=== PATIENT | female | born 1985 | race Caucasian/White ===

== ENCOUNTER 2020-12-08 21:19 | Observation (INO) | payer OTHER ==
--- OUTSIDE RECORDS SUMMARY | 2020-12-08 21:22 | XMS REPORT | Continuity of Care Document ---
:1985 Author Organization [facility] t Address [address] [place] [address] Care Team Providers Name Role Phone Carmelita WAGNER, Whit Attending Clinician Brayan WAGNER Attending Clinician Юлия WAGNER Attending Clinician Chacho Fong MD Attending Clinician Doctor Unassigned, Name Attending Clinician Unavailable Mayank AG Attending Clinician Юлия WAGNER Admitting Clinician Payers Payer Name Policy Type Policy Number Effective Date Expiration Date S ource Problems Condition Condition Condition Status Onset Resolution Last Treating Co mments Source Name Details Category Date Date Treatment Clinician Date lobsterman Diagnosis Active 2020-11-13 Memoria (current) 04:10:35 l use of Long Frank insulin term (current) use of insulin Active Diagnosis 11/13/2020 2.16.840.1 .656700.4. [id number] 607 Body mass Problem Active 2020-11-13 Me moria index 04:10:35 l (BMI) Body Frank 34.0-34.9, mass index adult (BMI) 34.0-34.9, adult Active Problem 11/13/2020 2.16.840.1 .024828.4. 391.11.308 607 BMI Problem Active 2020-11-13 Memor ia 32.0-32.9, 04:10:35 l adult BMI Frank 32.0-32.9, adult Active Problem 11/13/2020 2.16.840.1 .449935.4. 391.11.308 607 Insulin Problem Active 2020-11-13 Magdy amy pump in 04:10:[address] Insulin Frank pump in place Active Problem 11/13/2020 2.16.840.1 .120957.4. 391.11.308 607 Body mass Problem Active 2020-11-13 Me moria index 04:10:35 l (BMI) of Body Frank 33.0-33.9 mass index in adult (BMI) of 33.0-33.9 in adult Active Problem 11/13/2020 2.16.840.1 .388529.4. 391.11.308 607 Chronic Diagnosis Active 2020-11-13 Nc moria fatigue 04:10:35 l Chronic [place] fatigue Active Diagnosis 11/13/2020 2.16.840.1 .955313.4. 391.11.308 607 Acute Problem Active 2020-11-13 Memor ia vaginitis 04:10:35 l Acute Frank vaginitis Active Problem 11/13/2020 2.16.840.1 .355788.4. 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 391.11.308 607 Type 2 Problem Active 2020-11-13 Memor ia diabetes 04:10:35 l mellitus Type 2 Rafael n with diabetes hyperglyce mellitus meli, with without hyperglyce long-term meli, current without use of long-term insulin current use of insulin Active Problem 11/13/2020 2.16.840.1 .916667.4. 391.11.308 607 Hyperglyce Problem Active 2020-11-13 Matthew lieberman meli 04:10:35 l [place] Hyperglyce meli Active Problem 11/13/2020 2.16.840.1 .740743.4. 391.11.308 607 Hyperlipid Diagnosis Active 2020-11-13 Memoria emia, 04:10:35 l unspecifie Rafael n d Hyperlipid emia, unspecifie d Active Diagnosis 11/13/2020 2.16.840.1 .296022.4. 391.11.308 607 BMI Diagnosis Active 2020-11-13 Mem oria 31.0-31.9, 04:10:35 l adult BMI [place] 31.0-31.9, adult Active Diagnosis 11/13/2020 2.16.840.1 .773460.4. 391.11.308 607 lobsterman Diagnosis Active 2020-11-13 Memoria use of 04:10:35 l drug Long [place] term use of drug Active Diagnosis 11/13/2020 2.16.840.1 .206258.4. 391.11.308 607 Noncomplia Diagnosis Active 2020-11-13 Memoria nce 04:10:35 l [place] Noncomplia nce Active Diagnosis 11/13/2020 2.16.840.1 .473735.4. 391.11.308 607 Screening Diagnosis Active 2020-11-13 Memoria for breast 04:10:35 l cancer [place] Screening for breast cancer Active Diagnosis 11/13/2020 2.16.840.1 .160621.4. 391.11.308 607 Vaginal Diagnosis Active 2020-11-13 Me moria dryness 04:10:35 l Vaginal [place] dryness Active Diagnosis 11/13/2020 2.16.840.1 .958849.4. 391.11.308 607 Menopause Diagnosis Active 2020-11-13 Memoria 04:10:35 l [place] Menopause Active Diagnosis 11/13/2020 2.16.840.1 .465781.4. 391.11.308 607 Screening Diagnosis Active 2020-10-07 Memoria for 04:10:05 l osteoporos Rafael n is Screening for osteoporos is Active Diagnosis 10/07/2020 2.16.840.1 .950820.4. 391.11.308 607 Hypoglycem Diagnosis Active 2020-11-13 Memoria ia 04:10:35 l Frank Hypoglycem ia Active Diagnosis 11/13/2020 2.16.840.1 .241553.4. 391.11.308 607 Dysuria Problem Active 2020-11-13 Magdy amy 04:10:35 l Dysuria [place] Active Problem 11/13/2020 2.16.840.1 .726221.4. 391.11.308 607 BMI Problem Active 2020-11-13 Memor ia 30.0-30.9, 04:10:35 l adult BMI [place] 30.0-30.9, adult Active Problem 11/13/2020 2.16.840.1 .573095.4. 391.11.308 607 Insulin Problem Active 2020-11-13 Magdy amy pump 04:10:35 l fitting or Insulin Her ashby adjustment pump fitting or adjustment Active Problem 11/13/2020 2.16.840.1 .595728.4. 391.11.308 607 Allergies, Adverse Reactions, Alerts Allergy Allergy Status Severity Reaction(s) Onset Inactive Treating Comm ents Source Name Type Date Date Clinician Dermabon Dermabon Active Irritated Mem oria and swelling 4-27 l were placed. 00:00: Herm ailin 00 meperidi DA Active MO 2018-0 [facility] ne 6-20 [place] 00:00: d 00 [facility] meperidi DA Active MO 2018-0 [facility] ne 6-18 Clear 00:00: Schmidt 00 [facility] meperidi DA Active MO 2018-0 [facility] ne 6-17 Clear 00:00: Schmidt 00 [facility] meperidi DA Active MO 2018-0 [facility] ne 6-05 Clear 00:00: Schmidt 00 [facility] meperidi DA Active MO 2017- [facility] ne 1-27 [place] 00:00: d 00 [facility] meperidi DA Active MO 2017-0 [facility] 3[facility] l [facility] Medications Ordered Filled Start Stop Current Ordering Indication Dosage Frequency Signature Comments Components Source Medication Medication Date Date Medication? Clinician (SIG) Name Name Losartan Yes HUE TAKE 1 Memori a Potassium 11-13 BRISEYDA TABLET BY l 04:10: MOUTH [place] 35 DAILY Rosuvastati Yes HUE 1 tablet M emoria n Calcium 11-13 BRISEYDA l 04:10: [place] 35 Multi For Yes HUE not Memoria Her 11-13 BRISEYDA defined l 04:10: Frank 35 Citalopram Yes HUE not Memori a Hydrobromid 11-13 BRISEYDA defined l e 04:10: [place] 35 MetFORMIN Yes HUE TAKE TWO Mem oria HCl ER 11-13 BRISEYDA TABLETS BY l 04:10: MOUTH Frank 35 TWICE A DAY WITH EVENING MEAL Estradiol Yes HUE 1 tablet Mem oria 11-13 BRISEYDA l 04:10: Frank 35 Dexcom G6 Yes HUE as Memoria Sensor 5- BRISEYDA directed l 04:10: [place] 35 Glucagon Yes HUE as Memoria Emergency 5- BRISEYDA directed l 04:10: Frank 35 Baqsimi Two Yes HUE 1 spray to Memoria Pack 4-27 BRISEYDA 1 nostril l 00:00: as [place] 00 directed Dexcom G6 Yes HUE as Memoria Transmitter 1-05 BRISEYDA directed l 00:00: Frank 00 Rybelsus 2019-07 Yes HUE one tab q Mem oria 2-17 BRISEYDA am 30 l 05:11: minutes [place] 17 before breakfast with no more than 4 oz of water Dexcom G6 2019-07 Yes HUE as Memoria Sensor 2-17 BRISEYDA directed l 05:11: Frank 17 CoQ-10 2019-07 Yes HUE 1 capsule Memor ia 2-17 BRISEYDA with a l 05:11: meal [place] 17 Tresiba 2019-07 Yes HUE up to 60 Memor ia FlexTouch 2-17 BRISEYDA units a l 05:11: day as Frank 17 directed Rybelsus 2019-07 Yes HUE take 30 Memor ia 2-17 BRISEYDA minutes l 05:11: before [place] 17 eating with no more than 4 oz of water Rybelsus 2019-07 Yes HUE take 30 Memor ia 2-16 BRISEYDA minutes l 00:00: before Frank 00 eating with no more than 4 oz of water Fiasp Yes HUE inject up Memori a PenFill 5-28 BRISEYDA to 20 l 00:00: units per [place] 00 each meal as directed InPen Yes HUE as Memoria 100-Blue-No 5-28 BRISEYDA directed l vo 00:00: Frank 00 Dexcom G6 2018-07 Yes HUE as Memoria Transmitter 1-07 BRISEYDA directed l 00:00: Frank 00 Fiasp 2017-07 Yes HUE Use up to Memori a 0-31 BRISEYDA 100 units l 00:00: in insulin [place] 00 pump Humalog Yes HUE Use up to Magdy amy 1-08 BRISEYDA 100 units l 00:00: in insulin Frank 00 pump Gloria Yes HUE Use to Memoria Contour 1-08 BRISEYDA check l Next Test 00:00: blood [place] 00 sugar Glucagon Yes HUE use in Memori a Emergency 8-04 BRISEYDA hypoglycem l 00:00: ic Frank 00 emergency BD Pen Yes HUE use with Memori a Needle Cat 6-23 BRISEYDA insulin l U/F 00:00: pens up to [place] 00 5 timers Vital Signs Vital Name Observation Time Observation Value Comments Source Weight 2020-11-09 13:10:00 [facility] [place] Height 2020-11-09 13:10:00 [facility] [place] Temperature Oral (F) 2020-11-09 13:10:00 97.2 F [facility] [place] Heart Rate 2020-11-09 13:10:00 [facility] [place] Diastolic (mm Hg) 2020-11-09 13:10:00 Mem orial [place] Systolic (mm Hg) 2020-11-09 13:10:00 Magdy rial [place] Weight 2020-06-30 19:30:00 [facility] [place] Height 2020-06-30 19:30:00 [facility] [place] Temperature Oral (F) 2020-06-30 19:30:00 97.6 F [facility] [place] Heart Rate 2020-06-30 19:30:00 [facility] [place] Diastolic (mm Hg) 2020-06-30 19:30:00 Mem orial Frank Systolic (mm Hg) 2020-06-30 19:30:00 Magdy rial [place] Procedures This patient has no known procedures. Encounters Start End Encounter Admission Attending Care Care Encounter Source Date/Time Date/Time Type Type Clinicians Facility Department ID 2020-11-09 2020-11-09 [facility] [id number] [facility] 08:10:00 08:10:00 [facility] 2020-10-27 2020-10-27 [facility] [id number] [facility] 08:21:00 08:21:00 [facility] 2020-10-27 2020-10-27 [facility] [id number] [facility] 2020-10-26 2020-10-26 [facility] [id number] eClinic 08:48:00 08:48:00 [facility] 2020-10-14 2020-10-14 [facility] [id number] [facility]Clinic 15:07:00 15:07:00 [facility] 2020-10-07 2020-10-07 Outpatient [facility] [id number] [facility] 2020-10-04 2020-10-04 [facility] [id number] [facility]Clinic 12:36:00 12:36:00 [facility] 2020-10-04 2020-10-04 [facility] [id number] [facility]Clinic 11:29:00 11:29:00 [facility] 2020-10-04 2020-10-04 Outpatient [facility] [id number] [facility] 2020-09-23 2020-09-23 [facility] [id number] [facility]inic 14:28:00 14:28:00 [facility] 2020-09-22 2020-09-22 [facility] [id number] eClinic 13:35:00 13:35:00 [facility] 2020-07-20 2020-07-20 [facility] [id number] [facility]Clinic 14:00:00 14:00:00 [facility] 2020-07-20 2020-07-20 [facility] [id number] eClinic 13:00:00 13:00:00 [facility] 2020-07-12 2020-07-12 [facility] [id number] eClinic 15:54:00 15:54:00 [facility] 2020-06-30 2020-06-30 [facility] [id number] eClinic 13:30:00 13:30:00 [facility] 2020-06-16 2020-06-16 Outpatient [facility] [id number] [facility] 2020-05-10 2020-05-10 Out[facility] [id number] [facility] 2020-05-05 2020-05-05 Outpatient [facility] [id number] [facility] 2020-04-28 2020-04-28 Outpatient [facility] [id number] [facility] 2020-01-23 2020-01-24 Emergency Josh Mae [facility] 1.2.840.1 14 [id number] 05:33:39 13:18:00 Sanchez Schmidt [id number] Gabriele Redman [id number] [place] [id number] 2020-01-14 2020-01-14 Isacc Fong [facility] 1.2.840.114 [id number] 00:00:00 00:00:00 [facility] [id number] Chacho Crowley [id number] [facility] [id number] nal [address] 2019-03-26 2019-03-27 Hospital Sanchez Schmidt [facility] 1.2.840.1 14 [id number] 15:28:49 15:32:00 Encounter IraisGabriele mcclelland 350.1.13.10 [place] 4.2.7.2.686 [place] [id number] 2019-03-26 2019-03-26 Orders Doctor DAKSHA 1.2.840.114 [id number] 00:00:00 00:00:00 Only Unassigned, MYRA [id number] [place] [id number] 2019-03-08 2019-03-08 [facility] 1.2.840.114 [id number] 10:05:20 14:03:00 Demetra Crowley [id number] [place] 4.2.7.2.686 [place] [id number] [id number] Results Test Description Test Time Test Comments Results Result Comments Source GLUCOSE BEDSIDE TESTING 2019-01-02 12:25:00 Test Item Value Reference Range Interpretation Comme nts GLUCOSE BEDSIDE TESTING (test code = GLUBED) 262 mg/dL 70-110 H BASIC METABOLIC [id number] 12:03:00 Test Item Value Reference Range Interpretation Comments SODIUM (test code = NA) 139 mmol/L 134-147 N POTASSIUM (test code = 3.8 mmol/L 3.4-5.0 N K) CHLORIDE (test code = 105 mmol/L 100-108 N CL) CARBON DIOXIDE (test 28 mmol/L 21-32 N code = CO2) ANION GAP (test code = 6.0 GAP calc 4.0-15.0 N GAP) GLUCOSE (test code = 285 MG/DL 70-110 H GLU) BLOOD UREA NITROGEN 7 MG/DL 7-18 N (test code = BUN) GLOMERULAR FILTRATION >=60 max estimate >60 RATE (test code = GFR) estGFR CREATININE (test code = 0.7 MG/DL 0.6-1.0 N CREAT) CALCIUM (test code = CA) 8.8 MG/DL 8.5-10.1 N CBC W/AUTO [id number] 11:55:00 Test Item Value Reference Range Interpretation Comments WHITE BLOOD CELL (test code = 6.9 K/mm3 3.5-11.0 N WBC) RED BLOOD CELL (test code = RBC) 4.30 M/mm3 4.70-6.10 L HEMOGLOBIN (test code = HGB) 13.5 G/DL 10.4-14.9 N HEMATOCRIT (test code = HCT) 39.1 % 31.5-44.1 N MEAN CELL VOLUME (test code = 90.9 Fl 84.5-98.6 N MCV) MEAN CELL HGB (test code = MCH) 31.4 pg 27.0-34.2 N MEAN CELL HGB CONCETRATION (test 34.5 G/DL 31.5-34.0 H code = MCHC) RED CELL DISTRIBUTION WIDTH (test 12.7 SD 11.5-14.5 N code = RDW) PLATELET COUNT (test code = PLT) 223.0 K/mm3 150-450 N MEAN PLATELET VOLUME (test code = 10.40 fL 7.0-10.5 N MPV) NEUTROPHIL % (test code = NT%) 58.7 % 40-76 N LYMPHOCYTE % (test code = LY%) 33.2 % 20.5-51.1 N MONOCYTE % (test code = MO%) 7.7 % 1.7-9.3 N EOSINOPHIL % (test code = EO%) 0.3 % 0.0-6.0 N BASOPHIL % (test code = BA%) 0.1 % 0.0-2.0 N NEUTROPHIL # (test code = NT#) 4.06 K/mm3 1.8-7.6 N LYMPHOCYTE # (test code = LY#) 2.3 K/mm3 0.6-3.2 N MONOCYTE # (test code = MO#) 0.5 K/mm3 0.3-1.1 N EOSINOPHIL # (test code = EO#) 0.0 K/mm3 0.0-0.4 N BASOPHIL # (test code = BA#) 0.0 K/mm3 0.0-0.1 N MANUAL DIFF REQUIRED (test code = NO DIFF/SCN CRITERIA MDIFF) GLUCOSE BEDSIDE [id number] 08:22:00 Test Item Value Reference Range Interpretation Comments GLUCOSE BEDSIDE TESTING (test code 329 mg/dL 70-110 H = GLUBED) GLUCOSE BEDSIDE [id number] 20:18:00 Test Item Value Reference Range Interpretation Comments GLUCOSE BEDSIDE TESTING (test code 332 mg/dL 70-110 H = GLUBED) GLUCOSE BEDSIDE [id number] 17:12:00 Test Item Value Reference Range Interpretation Comments GLUCOSE BEDSIDE TESTING (test code 239 mg/dL 70-110 H = GLUBED) GLUCOSE BEDSIDE [id number] 12:18:00 Test Item Value Reference Range Interpretation Comments GLUCOSE BEDSIDE TESTING (test code 165 mg/dL 70-110 H = GLUBED) BASIC METABOLIC [id number] 10:15:00 Test Item Value Reference Range Interpretation Comments SODIUM (test code = NA) 142 mmol/L 134-147 N POTASSIUM (test code = 3.7 mmol/L 3.4-5.0 N K) CHLORIDE (test code = 111 mmol/L 100-108 H CL) CARBON DIOXIDE (test 24 mmol/L 21-32 N code = CO2) ANION GAP (test code = 7.0 GAP calc 4.0-15.0 N GAP) GLUCOSE (test code = 237 MG/DL 70-110 H GLU) BLOOD UREA NITROGEN 5 MG/DL 7-18 L (test code = BUN) GLOMERULAR FILTRATION >=60 max estimate >60 RATE (test code = GFR) estGFR CREATININE (test code = 0.6 MG/DL 0.6-1.0 N CREAT) CALCIUM (test code = CA) 8.3 MG/DL 8.5-10.1 L [id number] 10:15:00 Test Item Value Reference Range Interpretation Comments PHOSPHOROUS (test code = PHOS) 2.7 MG/DL 2.5-4.9 N [id number] 10:15:00 Test Item Value Reference Range Interpretation Comments MAGNESIUM (test code = MAG) 1.5 MG/DL 1.8-2.4 L CBC W/AUTO [id number] 10:00:00 Test Item Value Reference Range Interpretation Comments WHITE BLOOD CELL (test code = 5.3 K/mm3 3.5-11.0 N WBC) RED BLOOD CELL (test code = RBC) 3.90 M/mm3 4.70-6.10 L HEMOGLOBIN (test code = HGB) 12.2 G/DL 10.4-14.9 N HEMATOCRIT (test code = HCT) 35.3 % 31.5-44.1 N MEAN CELL VOLUME (test code = 90.5 Fl 84.5-98.6 N MCV) MEAN CELL HGB (test code = MCH) 31.3 pg 27.0-34.2 N MEAN CELL HGB CONCETRATION (test 34.6 G/DL 31.5-34.0 H code = MCHC) RED CELL DISTRIBUTION WIDTH (test 12.7 SD 11.5-14.5 N code = RDW) PLATELET COUNT (test code = PLT) 213.0 K/mm3 150-450 N MEAN PLATELET VOLUME (test code = 10.10 fL 7.0-10.5 N MPV) NEUTROPHIL % (test code = NT%) 61.0 % 40-76 N LYMPHOCYTE % (test code = LY%) 30.0 % 20.5-51.1 N MONOCYTE % (test code = MO%) 8.4 % 1.7-9.3 N EOSINOPHIL % (test code = EO%) 0.4 % 0.0-6.0 N BASOPHIL % (test code = BA%) 0.2 % 0.0-2.0 N NEUTROPHIL # (test code = NT#) 3.26 K/mm3 1.8-7.6 N LYMPHOCYTE # (test code = LY#) 1.6 K/mm3 0.6-3.2 N MONOCYTE # (test code = MO#) 0.5 K/mm3 0.3-1.1 N EOSINOPHIL # (test code = EO#) 0.0 K/mm3 0.0-0.4 N BASOPHIL # (test code = BA#) 0.0 K/mm3 0.0-0.1 N MANUAL DIFF REQUIRED (test code = NO DIFF/SCN CRITERIA MDIFF) GLUCOSE BEDSIDE [id number] 08:20:00 Test Item Value Reference Range Interpretation Comments GLUCOSE BEDSIDE TESTING (test code 152 mg/dL 70-110 H = GLUBED) GLUCOSE BEDSIDE [id number] 20:18:00 Test Item Value Reference Range Interpretation Comments GLUCOSE BEDSIDE TESTING (test code 145 mg/dL 70-110 H = GLUBED) GLUCOSE BEDSIDE [id number] 16:32:00 Test Item Value Reference Range Interpretation Comments GLUCOSE BEDSIDE TESTING (test code 206 mg/dL 70-110 H = GLUBED) GLUCOSE BEDSIDE [id number] 16:32:00 Test Item Value Reference Range Interpretation Comments GLUCOSE BEDSIDE TESTING (test code 245 mg/dL 70-110 H = GLUBED) - CT CHEST [id number] 14:12:00 Name: CRISTELA MANTILLAland : 1985 Age/S: 33 / F [address] [address] Unit #: [id number] Loc: [place] [address] Phys: Richie Deleon MD Acct: [id number] Dis Date: Status: ADM IN PHONE #: [phone] Exam Date: 12/31/2018 1124 FAX #: Reason: SOB EXAMS: CPT: [id number] CT CHEST W/CONTRAST 48884 EXAMINATION: - CT CHEST W/CONTRAST. LOCATION: S17. HISTORY: SOB, hyperglycemia, diabetes. COMPARISON: None. TECHNIQUE: CT of the chest is performed after intravenous administration of 100 cc of Isovue-300 as per protocol. One or more the following dose reduction techniques were used: Automated exposure control, adjustment of mA and/or kV according to patient size, and use of iterative reconstruction technique. FINDINGS: Partially visualized thyroid gland appears unremarkable. LYMPH NODES:No axillary, mediastinal or hilar bulky lymphadenopathy is identified. MEDIASTINUM: No mediastinal mass is noted. No aneurysmal dilatation of thoracic aorta. Bovine arch configuration of aortic arch. PLEURA/PERICARDIUM: No pericardial or pleural effusion is seen. LUNGS/AIRWAYS: The trachea and central bronchi are patent. No pneumothorax.No focal consolidation. Bibasilar dependent changes. 7 mm calcified right lower lobe subpleural nodule. OSSEOUS STRUCTURES: Visualized osseous structures appear unremarkable. UPPER ABDOMEN: Visualized portion of the upper abdominal viscera appear unremarkable. IMPRESSION: No focal consolidation. at 1412 Reported and signed by: Romaine Jennings M.D. PAGE 1 Signed Report (CONTINUED) [facility] 1985 Age/S: 33 / F [address] [address] Unit #: [id number] Loc: [place] [address] Phys: Richie Deleon Acct: [id number] Dis Date: Status: ADM IN PHONE #: [phone] Exam Date: 12/31/2018 1123 FAX #: Reason: SOB EX AMS: CPT: [id number] CT CHEST W/CONTRAST 00716 <Continued> CC: Hue Alonzo MD; Richie Deleon MD Technologist:Carli Gunter, RT(R)(MR) CTDI: DLP: Trnscb Date/Time: 12/31/2018 (141) [email or web address] Orig Print D/T: S: 12/31/2018(4905) PAGE 2 Signed Report- CT CHEST [id number] 14:12:00 Name: CRISTELA MANTILLA [place] : 1985 Age/S: 33 / F [address] [facility] Unit #: [id number] Loc: [place] [address] Phys: Richie Deleon MD Acct: [id number] Dis Date: Status: ADM IN PHONE #: [phone] Exam Date: 12/31/2018 112 FAX #: Reason: SOB EXAMS: CPT: [id number] CT CHEST W/CONTRAST [address]402 EXAMINATION: - CT CHEST W/CONTRAST. LOCATION: S17. HISTORY: SOB, hyperglycemia, diabetes. COMPARISON: None. TECHNIQUE: CT of the chest is performed after intravenous administration of 100 cc of Isovue-300 as per protocol. One or more the following dose reduction techniques were used: Automated exposure control, adjustment of mA and/or kV according to patient size, and use of iterative reconstruction technique. FINDINGS: Partially visualized thyroid gland appears unremarkable. LYMPH NODES:No axillary, mediastinal or hilar bulky lymphadenopathy is identified. MEDIASTINUM: No mediastinal mass is noted. No aneurysmal dilatation of thoracic aorta. Bovine arch configuration of aortic arch. PLEURA/PERICARDIUM: No pericardial or pleural effusion is seen. LUNGS/AIRWAYS: The trachea and central bronchi are patent. No pneumothorax.No focal consolidation. Bibasilar dependent changes. 7 mm calcified right lower lobe subpleural nodule. OSSEOUS STRUCTURES: Visualized osseous structures appear unremarkable. UPPER ABDOMEN: Visualized portion of the upper abdominal viscera appear unremarkable. IMPRESSION: No focal consolidation. at 1412 Reported and signed by: Romaine Jennings M.D. PAGE 1 Signed Report (CONTINUED) Name: CRISTELA MANTILLA [place] : 1985 Age/S: 33 / F [address] [address] Unit #: [id number] Loc: [place] [address] Phys: Richie Deleon Acct: [id number] Dis Date: Status: ADM IN PHONE #: [phone] Exam Date: 12/31/2018 1120 FAX #: Reason: SOB EXAMS: CPT: [id number] CT CHEST W/CONTRAST 23409 <Continued> CC: Hue Alonzo MD; Richie Deleon MD Technologist:Carli Gunter, RT(R)(MR) CTDI: DLP: Trnscb Date/Time: 12/31/2018 (1412) t.[email or web address] [email or web address] Orig Print D/T: S: 12/31/2018(1415) PAGE 2 Signed ReportGLUCOSE BEDSIDE [id number] 12:17:00 Test Item Value Reference Range Interpretation Comments GLUCOSE BEDSIDE TESTING (test code 196 mg/dL 70-110 H = GLUBED) GLUCOSE BEDSIDE [id number] 07:51:00 Test Item Value Reference Range Interpretation Comments GLUCOSE BEDSIDE TESTING (test code = 59 mg/dL 70-110 L GLUBED) UA RFLX MICR CULT IF [id number] 04:18:00 Test Item Value Reference Range Interpretation Comments UA COLOR (test code = YELLOW discript YEL/STRAW COLU) UA APPEARANCE (test code CLEAR discript CLEAR = APPU) UA GLUCOSE DIPSTICK (test 2+ mg/dL NEG code = DGLUU) UA BILIRUBIN DIPSTICK NEGATIVE mg/dL NEG (test code = BILU) UA KETONE DIPSTICK (test TRACE mg/dL NEG code = KETU) UA SPECIFIC GRAVITY (test 1.025 SG 1.005-1.030 code = SGU) UA BLOOD DIPSTICK (test NEGATIVE mg/DL NEG code = KUSHAL) UA PH DIPSTICK (test code 6.0 pH UNITS 5.0-7.0 = CONRAD) UA PROTEIN DIPSTICK (test NEGATIVE mg/dL NEG code = PROU) UA UROBILINIOGEN DIPSTICK 0.2 mg/dL <2.0 (test code = URO) UA NITRITE DIPSTICK (test NEGATIVE SCREEN NEG code = ASHTYN) UA LEUKOCYTE ESTERASE TRACE Leuk/mcL NEGATIVE A DIPSTICK (test code = LEUU) UA WBC (test code = WBCU) 3-5 #WBC/HPF 0-3 A UA SQUAMOUS CELLS (test TRACE /HPF NONE code = SQU) UA CULTURE NEEDED? (test NO, WBC<10 Criteria Culture CHK code = UACULT) less than 18 yrs old, neutropenic, or urological surgery? NOPrimary Indication for Culture: OtherOther Indication: DKAUA RFLX MICR CULT IF [id number] 04:09:00 Test Item Value Reference Range Interpretation Comments UA COLOR (test code = COLU) YELLOW discript YEL/STRAW UA APPEARANCE (test code = CLEAR discript CLEAR APPU) UA GLUCOSE DIPSTICK (test 2+ mg/dL NEG code = DGLUU) UA BILIRUBIN DIPSTICK (test NEGATIVE mg/dL NEG code = BILU) UA KETONE DIPSTICK (test code TRACE mg/dL NEG = KETU) UA SPECIFIC GRAVITY (test 1.025 SG 1.005-1.030 code = SGU) UA BLOOD DIPSTICK (test code NEGATIVE mg/DL NEG = KUSHAL) UA PH DIPSTICK (test code = 6.0 pH UNITS 5.0-7.0 CONRAD) UA PROTEIN DIPSTICK (test NEGATIVE mg/dL NEG code = PROU) UA UROBILINIOGEN DIPSTICK 0.2 mg/dL <2.0 (test code = URO) UA NITRITE DIPSTICK (test NEGATIVE SCREEN NEG code = ASHTYN) UA LEUKOCYTE ESTERASE TRACE Leuk/mcL NEGATIVE A DIPSTICK (test code = LEUU) UA CULTURE NEEDED? (test code Criteria Culture CHK = UACULT) less than 18 yrs old, neutropenic, or urological surgery? NOPrimary Indication for Culture: OtherOther Indication: DKABASIC METABOLIC [id number] 02:23:00 Test Item Value Reference Range Interpretation Comments SODIUM (test code = NA) 141 mmol/L 134-147 N POTASSIUM (test code = 3.5 mmol/L 3.4-5.0 N K) CHLORIDE (test code = 111 mmol/L 100-108 H CL) CARBON DIOXIDE (test 23 mmol/L 21-32 N code = CO2) ANION GAP (test code = 7.0 GAP calc 4.0-15.0 N GAP) GLUCOSE (test code = 165 MG/DL 70-110 H GLU) BLOOD UREA NITROGEN 8 MG/DL 7-18 N (test code = BUN) GLOMERULAR FILTRATION >=60 max estimate >60 RATE (test code = GFR) estGFR CREATININE (test code = 0.5 MG/DL 0.6-1.0 L CREAT) CALCIUM (test code = CA) 7.9 MG/DL 8.5-10.1 L GLUCOSE BEDSIDE [id number] 00:23:00 Test Item Value Reference Range Interpretation Comments GLUCOSE BEDSIDE TESTING (test code 191 mg/dL 70-110 H = GLUBED) GLUCOSE BEDSIDE [id number] 23:51:00 Test Item Value Reference Range Interpretation Comments GLUCOSE BEDSIDE TESTING (test code = 56 mg/dL 70-110 L GLUBED) GLYCOSYLATED HEMOGLOBIN [id number] 23:33:00 Test Item Value Reference Range Interpretation Comments GLYCOSYLATED HEMOGLOBIN (HA1C) 10.8 % A1C 4.2-6.3 H (test code = GLYHGB) ESTIMATED AVERAGE GLUCOSE (test 263 MG/DLest code = EAG) GLUCOSE BEDSIDE [id number] 23:00:00 Test Item Value Reference Range Interpretation Comments GLUCOSE BEDSIDE TESTING (test code 107 mg/dL 70-110 N = GLUBED) - XR CHEST 1 [id number] 22:26:00 Name: CRISTELA MANTILLA Register : 1985 Age/S: 33 / F [address] [address] Unit #: [id number] Loc: [place] [address] Phys: Richie Deleon MD Acct: [id number] Dis Date: Status: ADM IN PHONE #: [phone] Exam Date: 12/30/20182222 FAX #: Reason: SOB EXAMS: CPT: [id number] XR CHEST 1 V 79695 Fluoro Time: DAP (Gy m2): Air Kerma (mGy): EXAM: Portable chest one view. Location code:J9 HISTORY: Dyspnea COMPARISON: None available. COMMENT: . The lungs and pleural spaces are clear. Lungs are normally expanded. The aorta, pulmonary vasculature and mediastinum are within normal limits. Cardiac silhouette is normal in size and contour. Visualized skeletal structures are unremarkable. IMPRESSION: No active disease in the chest. at 2226 Reported and signed by: Johnie Beaulieu M.D.CC: Hue Alonzo MD; Richie Deleon MD PAGE 1 Signed Report Name: CRISTELA MANTILLA Register : 1985 Age/S: 33 / F [address] [address] Unit #: [id number] Loc: [place] [address] Phys: Richie Deleon MD Acct: [id number] Dis Date: Status: ADM INPHONE #: [phone] Exam Date: 12/30/20182222 FAX #: Reason: SOB EXAMS: CPT: [id number] XR CHEST 1 V 51939 FluoroTime: DAP (Gy m2): Air Kerma (mGy): <Continued> Technologist: Denise Sun RT(R)(CT)(MRI) Trnsdb Date/Time: 12/30/2018 (2225) t.MARIA GUADALUPER.RR16 Orig Print D/T: S: 12/30/2018 (0) PAGE 2 Signed Report- XR CHEST 1 [id number] 22:26:00 Name: CRISTELA MANTILLA Register : 1985 Age/S: 33 / F [address] [address] Unit #: [id number] Loc: [place] [address] Phys: Richie Deleon MD Acct: [id number] Dis Date: Status: ADM IN PHONE #: [phone] Exam Date: 12/30/20182222 FAX #: Reason: SOB EXAMS: CPT: [id number] XR CHEST 1 V 76637 Fluoro Time: DAP (Gy m2): Air Kerma (mGy): EXAM: Portable chest one view. Location code:J9 HISTORY: Dyspnea COMPARISON: None available. COMMENT: . The lungs and pleural spaces are clear. Lungs are normally expanded. The aorta, pulmonary vasculature and mediastinum are within normal limits. Cardiac silhouette is normal in size and contour. Visualized skeletal structures are unremarkable. IMPRESSION: No active disease in the chest. at 2226 Reported and signed by: Johnie Beaulieu M.D.CC: Hue Alonzo MD; Richie Deleon MD PAGE 1 Signed Report Name: CRISTELA MANTILLAland : 1985 Age/S: 33 / F [address] [address] Unit #: [id number] Loc: [place] [address] Phys: Richie Deleon MD Acct: [id number] Dis Date: Status: ADM INPHONE #: [phone] Exam Date: 12/30/20182222 FAX #: Reason: SOB EXAMS: CPT: [id number] XR CHEST 1 V 62606 FluoroTime: DAP (Gy m2): Air Kerma (mGy): <Continued> Technologist: Denise Sun RT(R)(CT)(MRI) Trnscb Date/Time: 12/30/2018 (2225) IsaiasR.RR16 Orig Print D/T: S: 12/30/2018 (1208) PAGE 2 Signed ReportGLUCOSE BEDSIDE [id number] 22:11:00 Test Item Value Reference Range Interpretation Comments GLUCOSE BEDSIDE TESTING (test code 203 mg/dL 70-110 H = GLUBED) GLUCOSE BEDSIDE [id number] 21:02:00 Test Item Value Reference Range Interpretation Comments GLUCOSE BEDSIDE TESTING (test code 316 mg/dL 70-110 H = GLUBED) GLUCOSE BEDSIDE [id number] 21:02:00 Test Item Value Reference Range Interpretation Comments GLUCOSE BEDSIDE TESTING (test code 364 mg/dL 70-110 H = GLUBED) COMPREHENSIVE METABOLIC [id number] 21:01:00 Test Item Value Reference Range Interpretation Comments SODIUM (test code = NA) 134 mmol/L 134-147 N POTASSIUM (test code = 3.8 mmol/L 3.4-5.0 N K) CHLORIDE (test code = 105 mmol/L 100-108 N CL) CARBON DIOXIDE (test 22 mmol/L 21-32 N code = CO2) ANION GAP (test code = 7.0 GAP calc 4.0-15.0 N GAP) GLUCOSE (test code = 324 MG/DL 70-110 H GLU) BLOOD UREA NITROGEN 11 MG/DL 7-18 N (test code = BUN) GLOMERULAR FILTRATION >=60 max estimate >60 RATE (test code = GFR) estGFR CREATININE (test code = 0.6 MG/DL 0.6-1.0 N CREAT) TOTAL PROTEIN (test code 7.4 G/DL 6.4-8.2 N = PROT) ALBUMIN (test code = 3.5 G/DL 3.4-5.0 N ALB) GLOBULIN (test code = 3.9 GM/dL GLOB) ALBUMIN/GLOBULIN RATIO 0.9 RATIO 1.2-2.2 L (test code = A/G) CALCIUM (test code = CA) 8.6 MG/DL 8.5-10.1 N BILIRUBIN TOTAL (test 0.60 MG/DL 0.2-1.2 N code = BILT) SGOT/AST (test code = 16 Unit/L 15-37 N AST) SGPT/ALT (test code = 38 Unit/L 12-78 N ALT) ALKALINE PHOSPHATASE 160 Unit/L 45-117 H TOTAL (test code = ALKP) LIPID PROFILE (CORONARY RISK)2018-12-30 21:01:00 Test Item Value Reference Range Interpretation Comments TRIGLYCERIDES (test code = TRIG) 283 MG/DL 0-150 H CHOLESTEROL (test code = CHOL) 155 MG/DL 133-200 N CHOLESTEROL/HDL RATIO (test code = 6.20 RATIO >0 CHOLHDL) HDL CHOLESTEROL (test code = HDL) 25 MG/DL 40-59 L NON-HDL CHOLESTEROL (test code = 130 mg/dL <130 NHDL) LIPOPROTEIN LDL (test code = LDL) 87 MG/DL 0-129 N LDL/HDL (test code = LDL/HDL) 3.48 Ratio 1.48-3.22 Avg H [id number] 21:01:00 Test Item Value Reference Range Interpretation Comments PHOSPHOROUS (test code = PHOS) 3.1 MG/DL 2.5-4.9 N [id number] 21:01:00 Test Item Value Reference Range Interpretation Comments LIPASE (test code = LIP) 184 Unit/L 114-286 N [id number] 21:01:00 Test Item Value Reference Range Interpretation Comments MAGNESIUM (test code = MAG) 1.8 MG/DL 1.8-2.4 N PROTHROMBIN [id number] 21:00:00 Test Item Value Reference Range Interpretation Comments PT PATIENT (test code = PTP) 12.2 SECONDS 9.3-12.9 N INTERNATIONAL NORMAL RATIO 1.06 INR Unit 0.8-1.2 N (test code = INR) CBC W/AUTO [id number] 20:46:00 Test Item Value Reference Range Interpretation Comments WHITE BLOOD CELL (test code = 8.1 K/mm3 3.5-11.0 N WBC) RED BLOOD CELL (test code = RBC) 4.41 M/mm3 4.70-6.10 L HEMOGLOBIN (test code = HGB) 13.3 G/DL 10.4-14.9 N HEMATOCRIT (test code = HCT) 39.2 % 31.5-44.1 N MEAN CELL VOLUME (test code = 88.9 Fl 84.5-98.6 N MCV) MEAN CELL HGB (test code = MCH) 30.2 pg 27.0-34.2 N MEAN CELL HGB CONCETRATION (test 33.9 G/DL 31.5-34.0 N code = MCHC) RED CELL DISTRIBUTION WIDTH (test 12.1 SD 11.5-14.5 N code = RDW) PLATELET COUNT (test code = PLT) 237.0 K/mm3 150-450 N MEAN PLATELET VOLUME (test code = 9.90 fL 7.0-10.5 N MPV) NEUTROPHIL % (test code = NT%) 63.9 % 40-76 N LYMPHOCYTE % (test code = LY%) 27.8 % 20.5-51.1 N MONOCYTE % (test code = MO%) 7.9 % 1.7-9.3 N EOSINOPHIL % (test code = EO%) 0.2 % 0.0-6.0 N BASOPHIL % (test code = BA%) 0.2 % 0.0-2.0 N NEUTROPHIL # (test code = NT#) 5.20 K/mm3 1.8-7.6 N LYMPHOCYTE # (test code = LY#) 2.3 K/mm3 0.6-3.2 N MONOCYTE # (test code = MO#) 0.6 K/mm3 0.3-1.1 N EOSINOPHIL # (test code = EO#) 0.0 K/mm3 0.0-0.4 N BASOPHIL # (test code = BA#) 0.0 K/mm3 0.0-0.1 N MANUAL DIFF REQUIRED (test code = NO DIFF/SCN CRITERIA MDIFF) - XR CHEST 1 [id number] 14:15:00 Name: CRISTELA MANTILLA Register : 1985 Age/S: 33 / F [address] [address] Unit #: [id number] Loc: [place] [address] Phys: Jenni Nicole MD Acct: [id number] Dis Date: Status: ADM IN PHONE #: [phone] Exam Date: 12/19/2018 1330 FAX #: Reason: pneumonia EXAMS: CPT: [id number] XR CHEST 1 V 38977 Fluoro Time: DAP (Gy m2): Air Kerma (mGy): HISTORY: Cough, pneumonia Location code: B2 FINDINGS: Frontal view of the chest demonstrates normal cardiomediastinal silhouette. The trachea is midline. Mild bibasilar atelectasis. There is no effusion or pn eumothorax. The bones are intact. IMPRESSION: Mild bibasilar streaky atelectasis. at 1415 Reported and signed by: Anurag Deleon M.D. CC: Jenni Nicole MD; Richie Deleon MD PAGE 1 Signed Report Name: CRISTELA MANTILLA Register : 1985 Age/S: 33 / F [address] Unit #: [id number] Loc: [place] [address] Phys: Jenni Nicole MD Acct: [id number] Dis Date: Status: ADM IN PHONE #: [phone] Exam Date: 12/19/2018 1330 FAX #: Reason: pneumonia EXAMS: CPT: [id number] XR CHEST 1 V 80512 Fluoro Time: DAP (Gy m2): Air Kerma (mGy): <Continued> Technologist: Iggy Bucio RT(R)(CT)(MRI) Trnscb Date/Time: 12/19/2018 (1418) AurelioRK5 Orig Print D/T: S: 12/19/2018 (3111) PAGE 2Signed ReportGLUCOSE BEDSIDE [id number] 13:49:00 Test Item Value Reference Range Interpretation Comments GLUCOSE BEDSIDE TESTING (test code 219 mg/dL 70-110 H = GLUBED) GLUCOSE BEDSIDE [id number] 11:12:00 Test Item Value Reference Range Interpretation Comments GLUCOSE BEDSIDE TESTING (test code = 60 mg/dL 70-110 L GLUBED) GLUCOSE BEDSIDE [id number] 08:40:00 Test Item Value Reference Range Interpretation Comments GLUCOSE BEDSIDE TESTING (test code 107 mg/dL 70-110 N = GLUBED) BASIC METABOLIC [id number] 04:17:00 Test Item Value Reference Range Interpretation Comments SODIUM (test code = NA) 141 mmol/L 134-147 N POTASSIUM (test code = 3.9 mmol/L 3.4-5.0 N K) CHLORIDE (test code = 110 mmol/L 100-108 H CL) CARBON DIOXIDE (test 25 mmol/L 21-32 N code = CO2) ANION GAP (test code = 6.0 GAP calc 4.0-15.0 N GAP) GLUCOSE (test code = 209 MG/DL 70-110 H GLU) BLOOD UREA NITROGEN 5 MG/DL 7-18 L (test code = BUN) GLOMERULAR FILTRATION >=60 max estimate >60 RATE (test code = GFR) estGFR CREATININE (test code = 0.5 MG/DL 0.6-1.0 L CREAT) CALCIUM (test code = CA) 7.3 MG/DL 8.5-10.1 L CBC W/AUTO [id number] 04:09:00 Test Item Value Reference Range Interpretation Comments WHITE BLOOD CELL (test code = 4.5 K/mm3 3.5-11.0 N WBC) RED BLOOD CELL (test code = RBC) 3.92 M/mm3 4.70-6.10 L HEMOGLOBIN (test code = HGB) 12.1 G/DL 10.4-14.9 N HEMATOCRIT (test code = HCT) 36.0 % 31.5-44.1 N MEAN CELL VOLUME (test code = 91.8 Fl 84.5-98.6 N MCV) MEAN CELL HGB (test code = MCH) 30.9 pg 27.0-34.2 N MEAN CELL HGB CONCETRATION (test 33.6 G/DL 31.5-34.0 N code = MCHC) RED CELL DISTRIBUTION WIDTH (test 12.2 SD 11.5-14.5 N code = RDW) PLATELET COUNT (test code = PLT) 161.0 K/mm3 150-450 N MEAN PLATELET VOLUME (test code = 10.60 fL 7.0-10.5 H MPV) NEUTROPHIL % (test code = NT%) 74.6 % 40-76 N LYMPHOCYTE % (test code = LY%) 20.3 % 20.5-51.1 L MONOCYTE % (test code = MO%) 4.9 % 1.7-9.3 N EOSINOPHIL % (test code = EO%) 0.0 % 0.0-6.0 N BASOPHIL % (test code = BA%) 0.2 % 0.0-2.0 N NEUTROPHIL # (test code = NT#) 3.38 K/mm3 1.8-7.6 N LYMPHOCYTE # (test code = LY#) 0.9 K/mm3 0.6-3.2 N MONOCYTE # (test code = MO#) 0.2 K/mm3 0.3-1.1 L EOSINOPHIL # (test code = EO#) 0.0 K/mm3 0.0-0.4 N BASOPHIL # (test code = BA#) 0.0 K/mm3 0.0-0.1 N MANUAL DIFF REQUIRED (test code = NO DIFF/SCN CRITERIA MDIFF) GLUCOSE BEDSIDE [id number] 01:31:00 Test Item Value Reference Range Interpretation Comments GLUCOSE BEDSIDE TESTING (test code 199 mg/dL 70-110 H = GLUBED) - US PREG UT [id number] 00:00:00 Patient Name: CRISTELA MANTILLA Unit No: [id number] EXAMS: CPT CODE: [id number] US LTD 90968 [id number] US PREG UT TRANSVAGINAL [address] [facility] [address] [place], [place] [address] LIMITED OBSTETRICAL ULTRASOUND REPORT --- - Pat. Name: CRISTELA MANTILLA Study Date: 01/04/2014 11:21am Pat. No: [id number] Referring MD: Chris Irby M.D. LMP: 09/24/2013 Floorhand: Bib Rosario RDMS GA by LMP: 14.6 weeks , Age: 11 1985, 28 GA by 1st: GA Selected: 14.6 weeks (LMP) GA by US: AGUSTIN: 07/01/2014 Hist/Ind: Vaginal Bleeding OB Ltd Scan #1 - MEASUREMENTS AGE GROWTH EVALUATION Measurement GA Range Source % for 14.6 Ratios ------- ------- - CLINICAL SUMMARY Type of Gestation: Lee Intrauterine in variable presentation. motion and organs seen: heart motion seen body and limb movements seen Placental location: Posterior Placental maturity : Grade 0 There is no evidence of placenta previa. Amniotic fluid volume is normal. Uterus and adnexa: INTRAUTERINE BLEEDS ARE SEEN FOLLOWS: 1. LEFT LOWER UTERINE SEGMENT 49 X 10X 38 MM. 2. RIGHT FUNDAL 33 X 10 X 13 MM. Thank you for allowing us to participate in the care ofthis patient. Dianne Marroquin M.D. " Manually signed by Dianne Marroquin MD Reported and signed by: Dianne Marroquin MD [facility] NAME: CRISTELA MANTILLA Radiology Department PHYS: Akua Casper MD [address] : 1985 AGE: 28 SEX: F [place] [id number] LOC: UNK PHONE #: [phone] EXAM DATE: 01/04/2014 STATUS: DEP ER FAX #: [phone] RAD NO: Page 1 Signed Report (CONTINUED) Patient Name: CRISTELA MANTILLA Unit No: [id number] EXAMS: CPT CODE: [id number] US LTD 67369 [id number] US PREG UT TRANSVAGINAL [address] <Continued> CC: Akua Churchill MD; Chris Irby Technologist: Bib Rosario RDMS Probe: Trnscrbd D/ (1501) F.STEPHENC.KXR Advanced To Signed Dt/Tm/User: 01/06/14 (1501) FMarisabelBDC.KJAMILA [facility] NAME: CRISTELA MANTILLA Radiology Department PHYS: Akua Casper MD [address] : 1985 AGE: 28 SEX: F [place]el [place] [address] LOC: UNK PHONE #: [phone] EXAM DATE: 01/04/2014 STATUS: DEP ER FAX #: [phone] RAD NO: Page 2Signed Report Patient Name: CRISTELA MANTILLA Unit No: [id number] EXAMS: CPT CODE: [id number] US LTD 78297 [id number] US PREG UT TRANSVAGINAL [address] <Continued> [facility] NAME: CRISTELA MANTILLA Radiology Department PHYS: Akua Casper MD [address] : 1985 AGE: 28 SEX: F [place] [address] LOC: UNK PHONE #: [phone] EXAM DATE: 01/04/2014 STATUS: DEP ER FAX #: [phone] NO: Page 3 Signed Report- US [id number] 00:00:00 Patient Name: CRISTELA MANTILLA Unit No: [id number] EXAMS: CPT CODE: [id number] US LTD 67561 [id number] US PREG UT TRANSVAGINAL [address] [facility] [address] [place], [place] [address] LIMITED OBSTETRICAL ULTRASOUND REPORT --- - Pat. Name: CRISTELA MANTILLA Study Date: 01/04/2014 11:21am Pat. No: [id number] Referring MD: Chris Irby M.D. LMP: 09/24/2013 Floorhand: Bib Rosario RDMS GA by LMP: 14.6 weeks , Age: 11 1985, 28 GA by 1st: GA Selected: 14.6 weeks (LMP) GA by US: AGUSTIN: 07/01/2014 Hist/Ind: Vaginal Bleeding OB Ltd Scan #1 - MEASUREMENTS AGE GROWTH EVALUATION Measurement GA Range Source % for 14.6 Ratios ------- ------- - CLINICAL SUMMARY Type of Gestation: Lee Intrauterine in variable presentation. motion and organs seen: heart motion seen body and limb movements seen Placental location: Posterior Placental maturity : Grade 0 There is no evidence of placenta previa. Amniotic fluid volume is normal. Uterus and adnexa: INTRAUTERINE BLEEDS ARE SEEN FOLLOWS: 1. LEFT LOWER UTERINE SEGMENT 49 X 10X 38 MM. 2. RIGHT FUNDAL 33 X 10 X 13 MM. Thank you for allowing us to participate in the care ofthis patient. Dianne Marroquin M.D. " Manually signed by Dianne Marroquin MD Reported and signed by: Dianne Marroquin MD [facility] NAME: CRISTELA MANTILLA Radiology Department PHYS: Akua Casper MD [address] : 1985 AGE: 28 SEX: Jessica [id number] LOC: UNK PHONE #: [phone] EXAM DATE: 01/04/2014 STATUS: DEP ER FAX #: [phone] RAD NO: Page 1 Signed Report (CONTINUED) Patient Name: CRISTELA MANTILLA Unit No: [id number] EXAMS: CPT CODE: [id number] US LTD 04587 [id number] US PREG UT TRANSVAGINAL [address] <Continued> CC: Akua Churchill MD; Chris Irby Technologist: Bib Rosario RDMS Probe: Trnscrbd D/ (1501) F.BDC.KXR Advanced To Signed Dt/Tm/User: 01/06/14 (1501) MarisabelC.KXR [facility] NAME: CRISTELA MANTILLA Radiology Department PHYS: Akua Casper MD [address] : 1985 AGE: 28 SEX: F [place] [address] LOC: UNK PHONE #: [phone] EXAM DATE: 01/04/2014 STATUS: DEP ER FAX #: [phone] RAD NO: Page 2Signed Report Patient Name: CRISTELA MANTILLA Unit No: [id number] EXAMS: CPT CODE: [id number] US LTD 88283 [id number] US PREG UT TRANSVAGINAL 38993 <Continued> [facility] NAME: CRISTELA MANTILLA Radiology Department PHYS: Akua Casper MD [address] : 1985 AGE: 28 SEX: F [place] [address] LOC: UNK PHONE #: [phone] EXAM DATE: 01/04/2014 STATUS: DEP ER FAX #: [phone] NO: Page 3 Signed Report- US PREG UT [id number] 00:00:00 Patient Name: CRISTELA MANTILLA Unit No: [id number] EXAMS: CPT CODE: [id number] US PREG EVAL 1ST TRIMTR 38157 [id number] US PREG UT TRANSVAGINAL [address] [address] [place] [address] OBSTETRICAL ULTRASOUND REPORT - Pat. Name: CRISTELA MANTILLA Study Date: 10/30/2011 10:52pm Pat. No: [id number] Referring MD: Chris Irby M.D. LMP: 08/30/2011 Floorhand: Kusum HARRIS MS GA by LMP: 08.7 weeks , Age: 11 1985, 26 GA by 1st: GA Selected: 07.0 weeks (From Known E) GA by US: 08.0 weeks AGUSTIN: 06/17/2012 Hist/Ind: VAGINAL BLEEDING SCAN 1 - MEASUREMENTS AGE GROWTH EVALUATION Measurement GARange Source % for 07.0 Ratios ------- ------- CRL 1.6 cm 08.0 wk (07.4-08.6) Hadlock CRL >95 GA for sonogram 08.0 wk(07.4-08.6) Weight Estimate: based on (CRL) Avg Weight: gm (-) - CLINICAL SUMMARY Type of Gestation: Lee motion and organs seen: heart motion seen Amniotic fluid volume is GEST SAC 35 X 21 X 27 MM. Uterus and adnexa: SMALL SUBCHORIONIC BLEED 18 X 6 X 7 MMRT OV CL CYST 20 X 17 X 18 MM Thank you for allowing us to participate in the care of this patient. Dianne Marroquin M.D. " Manually signed by Dianne Marroquin MD Reported and signed by: Dianne Marroquin MD CC: Chris Irby; Melissa Garner DO Technologist: Kusum Damon RDMS Probe: Trnscrbd D/ (1806) F.RAD.KXR Advanced To Signed Dt/Tm/User: 11/06/11 (1806) FMarisabelRADMarisabelKXR [facility] NAME: FLORENCIA MANTILLAACE AMARILIS Radiology Department PHYS: Melissa King DO [address] : 1985 AGE: 26 SEX: F [place] [address] LOC: UNK PHONE #: EXAM DATE: 10/30/2011 STATUS: DEP ER FAX #: [phone] RAD NO: Page 1 Signed Report Patient Name: CRISTELA MANTILLA Unit No: [id number] EXAMS: CPT CODE: [id number] US PREG EVAL 1ST TRIMTR 66896 [id number] US PREG UT TRANSVAGINAL [address]25[address] <Continued> [facility] NAME: CRISTELA MANTILLA Radiology Department PHYS: Melissa King DO [address] : 1985 AGE: 26 SEX: F [place] [address] LOC: UNK PHONE #: [phone] EXAM DATE: 10/30/2011 STATUS: DEP ER FAX #: [phone] RAD NO: Page 2 Signed Report- US PREG EVAL 1ST [id number] 00:00:00 Patient Name: CRISTELA MANTILLA Unit No: [id number] EXAMS: CPT CODE: [id number] US PREG EVAL 1ST TRIMTR 74245 [id number] US PREG UT TRANSVAGINAL [address] [facility] [address] [place], [place] [address] OBSTETRICAL ULTRASOUND REPORT - Pat. Name: CRISTELA MANTILLA Study Date: 10/30/2011 10:52pm Pat. No: [id number] Referring MD: Chris Irby M.D. LMP: 08/30/2011 Floorhand: Kusum HARRIS RDMS GA by LMP: 08.7 weeks , Age: 11 1985, 26 GA by 1st: GA Selected: 07.0 weeks (From Known E) GA by US: 08.0 weeks AGUSTIN: 06/17/2012 Hist/Ind: VAGINAL BLEEDING SCAN 1 - MEASUREMENTS AGE GROWTH EVALUATION Measurement GARange Source % for 07.0 Ratios ------- ------- CRL 1.6 cm 08.0 wk (07.4-08.6) Hadlock CRL >95 GA for sonogram 08.0 wk(07.4-08.6) Weight Estimate: based on (CRL) Avg Weight: gm (-) - CLINICAL SUMMARY Type of Gestation: Lee motion and organs seen: heart motion seen Amniotic fluid volume is GEST SAC 35 X 21 X 27 MM. Uterus and adnexa: SMALL SUBCHORIONIC BLEED 18 X 6 X 7 MMRT OV CL CYST 20 X 17 X 18 MM Thank you for allowing us to participate in the care of this patient. Dianne Marroquin M.D. " Manually signed by Dianne Marroquin MD Reported and signed by: Dianne Marroquin MD CC: Chris Irby; Melissa Garner DO Technologist: Kusum Damon RDMS Probe: Trnscrbd D/ (1806) TIA Advanced To Signed Dt/Tm/User: 11/06/11 (1807) TIA [facility] NAME: CRISTELA MANTILLA Radiology Department PHYS: WOORO2 - Melissa Garner DO [address] : 1985 AGE: 26 SEX: F [place], [place] [address] LOC: UNK PHONE #: EXAM DATE: 10/30/2011 STATUS: DEP ER FAX #: [phone] RAD NO: Page 1 Signed Report Patient Name: CRISTELA MANTILLA Unit No: [id number] EXAMS: CPT CODE: [id number] US PREG EVAL 1ST TRIMTR [id number] US PREG UT TRANSVAGINAL 11614 <Continued> [facility] NAME: CRISTELA MANTILLA Radiology Department PHYS: WODAYNE - Melissa Garner DO [address] : 1985 AGE: 26 SEX: F [place], [place] [address] LOC: UNK PHONE #: [phone] EXAM DATE: 10/30/2011 STATUS: DEP ER FAX #: [phone] RAD NO: Page 2 Signed Report
[2020-12-08 23:41] LABS: Absolute Lymphocytes (CBC) 2.6 K/uL (0.7-4.9); Basophils % 0.7 % (0-1.3); Hematocrit 39.8 % (36.0-45.0); Lymphocytes % 37.2 % (15.3-44.8); MPV 8.7 fL (7.6-11.3); RBC Red Blood Cell Count 4.39 M/uL (3.86-4.86)
[2020-12-08 23:42] LABS: Protime INR 1.15
[2020-12-08 23:55] LABS: ALT/SGPT 37 U/L (12-78); AST/SGOT 22 U/L (15-37); Albumin 4.1 g/dL (3.4-5.0); Alkaline Phosphatase 113 U/L (45-117); BUN Blood Urea Nitrogen 12 mg/dL (7-18); Bicarbonate 30 mmol/L (21-32); Bilirubin Direct < 0.1 mg/dL (0-0.2); Bilirubin Total 0.3 mg/dL (0.2-1.0); Glucose Level 186 mg/dL (74-106); Magnesium 1.8 mg/dL (1.8-2.4); Potassium 4.1 mmol/L (3.5-5.1); Protein, Total 8.1 g/dL (6.4-8.2); Sodium Level 140 mmol/L (136-145); Troponin (Emerg Dept Use Only) < 0.02 ng/mL (0.0-0.045)
[2020-12-09 00:04] LABS: NT PRO-BNP < 5 pg/mL (<125)
--- NOTE | 2020-12-09 00:27 | EDPHYS ---
Physician Documentation [facility] Name: Cristiana Vasquez Age: 35 yrs Sex: Female : 1985 Arrival Date: 12/08/2020 Time: 21:32 Bed 3 Private MD: ED Physician Ronit Brunson HPI: 12/09 00:25 This 35 yrs old Female presents to ER via Ambulatory with complaints of Chest ma2 Pain, Shortness Of Breath. 00:25 The patient or guardian reports chest pain that is located primarily in the substernal ma2 area. Associated signs and symptoms: Pertinent negatives: diaphoresis, headache, lower extremity swelling. Severity of pain: At its worst the pain was moderate in the emergency department the pain is unchanged. The patient has experienced similar episodes in the past. 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 - Social history:: Smoking status: Patient denies any tobacco usage or history of. Patient/guardian denies using alcohol, street drugs, The patient lives with family. - Family history:: not pertinent. ROS: 12/09 00:25 Constitutional: Negative for fever, chills, and weight loss. ma2 All other systems are negative. Exam: 00:25 Constitutional: This is a well developed, well nourished patient who is awake, alert, ma2 and in no acute distress. Neck: Trachea midline, no thyromegaly or masses palpated, and no cervical lymphadenopathy. Supple, full range of motion without nuchal rigidity, or vertebral point tenderness. No Meningismus. Chest/axilla: Normal chest wall appearance and motion. Nontender with no deformity. No lesions are appreciated. Cardiovascular: Regular rate and rhythm with a normal S1 and S2. No gallops, murmurs, or rubs. Normal PMI, no JVD. No pulse deficits. Respiratory: Lungs have equal breath sounds bilaterally, clear to auscultation and percussion. No rales, rhonchi or wheezes noted. No increased work of breathing, no retractions or nasal flaring. Abdomen/GI: Soft, non-tender, with normal bowel sounds. No distension or tympany. No guarding or rebound. No evidence of tenderness throughout. Skin: Warm, dry with normal turgor. Normal color with no rashes, no lesions, and no evidence of cellulitis. MS/ Extremity: Pulses equal, no cyanosis. Neurovascular intact. Full, normal range of motion. Neuro: Awake and alert, GCS 15, oriented to person, place, time, and situation. Cranial nerves II-XII grossly intact. Motor strength 5/5 in all extremities. Sensory grossly intact. Cerebellar exam normal. Normal gait. Vital Signs: 12/08 21:32 BP 114 / 79; Pulse 80; Resp 16; Temp 97.9; Pulse Ox 100% ; Weight 86.18 kg; Height 5 vg1 ft. 6 in. (167.64 cm); Pain 5/10; 23:00 BP 119 / 101; Pulse 80; Resp 16; Pulse Ox 100% on R/A; [facility] 12/09 00:00 BP 108 / 75; Pulse 79; Resp 16; Pulse Ox 100% ; [facility] 01:35 BP 99 / 72; Pulse 80; Resp 16; Pulse Ox 99% on R/A; [facility] 12/08 21:32 Body Mass Index 30.67 (86.18 kg, 167.64 cm) 1 MDM: 12/08 23:20 Patient medically screened. [facility] 12/09 00:25 Differential diagnosis: abnormal EKG, gastroesophageal reflux disease (GERD), pleurisy, tx2 stable angina. HEART Score: History: Highly Suspicious (2), ECG: Non specific repolarization disturbance / LBTB / PM (1), Age: < or = 45 years (0), Risk Factors: 1 or 2 risk factors (1), Troponin: < or = 1 x Normal Limit (0). Data reviewed: vital signs, nurses notes. 12/08 22:44 Order name: Basic Metabolic Panel [facility] 12/08 22:44 Order name: CBC with Diff [facility] 12/08 22:44 Order name: LFT's [facility] 12/08 22:44 Order name: Magnesium; Complete Time: 00:19 [facility] 12/08 22:44 Order name: NT PRO-BNP; Complete Time: 00:19 [facility] 12/08 22:44 Order name: PT-INR; Complete Time: 01:14 [facility] 12/08 22:44 Order name: Troponin (emerg Dept Use Only); Complete Time: 00:19 [facility] 12/08 22:44 Order name: XRAY Chest (1 view) [facility] 12/08 22:45 Order name: Basic Metabolic Panel; Complete Time: 00:19 [facility] 12/08 22:45 Order name: CBC with Automated Diff; Complete Time: 00:19 [facility] 12/08 22:45 Order name: Liver (Hepatic) Function; Complete Time: 00:19 [facility] 12/09 00:21 Order name: COVID-19 : Document "Date of Symptom Onset" if Symptomatic. [facility] 12/09 00:45 Order name: D-Dimer; Complete Time: 01:14 [facility] 12/08 22:44 Order name: EKG; Complete Time: 22:45 [facility] 12/08 22:44 Order name: Cardiac monitoring; Complete Time: 23:07 [facility] 12/08 22:44 Order name: EKG - Nurse/Tech; Complete Time: 23:07 [facility] 12/08 22:44 Order name: IV Saline Lock; Complete Time: 23:19 [facility] 12/08 22:44 Order name: Labs collected and sent; Complete Time: 23:19 [facility] 12/08 22:44 Order name: O2 Per Protocol; Complete Time: 23:19 [facility] 12/08 22:44 Order name: O2 Sat Monitoring; Complete Time: 23:19 [facility] 12/09 00:22 Order name: NPO; Complete Time: 00:31 la1 Administered Medications: 00:49 Drug: Aspirin Chewable Tablet 324 mg Route: PO; jm8 01:29 Follow up: Response: No adverse reaction jm8 Disposition: 12/09/20 00:29 Hospitalization ordered by Antonio Ayoub for Observation. Preliminary diagnosis is Chest pain, unspecified. - Bed requested for Telemetry/MedSurg (observation). - Status is Observation. ea - Condition is Stable. - Problem is new. - Symptoms are unchanged. Signatures: Dispatcher [employer] [facility] Sophia Perales, RN LEXUS dw Marcellus Bnaks, DIRECTOR CLINICAL PHARMACOLOGY-C DIRECTOR CLINICAL PHARMACOLOGY-Cla1 Carmen Valle, RN Ronit Alvarado ea, MD MD ma2 Shasha Domínguez, RN RN vg1 Thien Carranza RN RN jm8 Corrections: (The following items were deleted from the chart) 00:27 00:27 12/09/2020 00:27 Discharged to Home. Impression: Chest pain, unspecified. ma2 Condition is Stable. Forms are Medication Reconciliation Form, Thank You Letter, Antibiotic Education, Prescription Opioid Use. Follow up: Private Physician; When: Tomorrow; Reason: Continuance of care. tx2 00:45 00:37 D-DIMER+COAG.LAB.BRZ ordered. [facility] 01:20 00:29 Hospitalization Ordered by Antonio Ayoub MD for Observation. Preliminary dw diagnosis is Chest pain, unspecified. Bed requested for Telemetry/MedSurg (observation). Status is Observation. Condition is Stable. Problem is new. Symptoms are unchanged. ma2 01:51 01:20 12/09/2020 00:29 Hospitalization Ordered by Antonio Ayoub MD for Observation. carl Preliminary diagnosis is Chest pain, unspecified. Bed requested for Telemetry/MedSurg (observation). Status is Observation. Condition is Stable. Problem is new. Symptoms are unchanged. dw
--- NOTE | 2020-12-09 00:27 | ER ---
Nurse's Notes [facility] Name: Cristiana Vasquez Age: 35 yrs Sex: Female : 1985 Arrival Date: 12/08/2020 Time: 21:32 Bed 3 Private MD: Diagnosis: Chest pain, unspecified Presentation: 12/08 21:32 Chief complaint: Patient states: Pt stated is having CP and SOB on exertion; States vg1 pain is 5/10. Patient stated is scheduled to have a heart cath tomorrow with Dr Moreno. Denies NVD, but states being lightheaded and Mid sternum pressure. Coronavirus screen: Client denies travel out of the [place] in the last 14 days. Ebola Screen: Patient negative for fever greater than or equal to 101.5 degrees Fahrenheit, and additional compatible Ebola Virus Disease symptoms. Initial Sepsis Screen: Does the patient meet any 2 criteria? No. Patient's initial sepsis screen is negative. Does the patient have a suspected source of infection? No. Patient's initial sepsis screen is negative. Risk Assessment: Do you want to hurt yourself or someone else? Patient reports no desire to harm self or others. Onset of symptoms was December 08, 2020. 21:32 Method Of Arrival: Ambulatory vg1 21:32 Acuity: SHIMON 3 vg1 Triage Assessment: 21:36 General: Appears in no apparent distress. comfortable, Behavior is calm, cooperative. vg1 Pain: Complains of pain in chest Pain currently is 5 out of 10 on a pain scale. 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 - Social history:: Smoking status: Patient denies any tobacco usage or history of. Patient/guardian denies using alcohol, street drugs, The patient lives with family. - Family history:: not pertinent. Screenin:10 Abuse screen: Denies threats or abuse. Nutritional screening: No deficits noted. ea Tuberculosis screening: No symptoms or risk factors identified. Fall Risk None identified. Assessment: 20:19 General: Appears in no apparent distress. Behavior is calm, cooperative, appropriate ea for age. Pain: Complains of pain in chest. Neuro: Level of Consciousness is awake, alert, obeys commands, Oriented to person, place, time. Cardiovascular: Patient's skin is warm and dry. Respiratory: Airway is patent Respiratory effort is even, unlabored, Respiratory pattern is regular, symmetrical. Derm: Skin is pink, warm \T\ dry. 12/09 00:35 Reassessment: Patient and/or family updated on plan of care and expected duration. Pain ea level reassessed. Hospitalist at bedside updating pt on plan of care. 01:51 Reassessment: Patient and/or family updated on plan of care and expected duration. Pain ea level reassessed. Patient is alert, oriented x 3, equal unlabored respirations, skin warm/dry/pink. Pt admitted to second floor, left ED via stretcher per tech. Pt tolerating well. Vital Signs: 12/08 21:32 BP 114 / 79; Pulse 80; Resp 16; Temp 97.9; Pulse Ox 100% ; Weight 86.18 kg; Height 5 vg1 ft. 6 in. (167.64 cm); Pain 5/10; 23:00 BP 119 / 101; Pulse 80; Resp 16; Pulse Ox 100% on R/A; jm8 12/09 00:00 BP 108 / 75; Pulse 79; Resp 16; Pulse Ox 100% ; jm8 01:35 BP 99 / 72; Pulse 80; Resp 16; Pulse Ox 99% on R/A; jm8 12/08 21:32 Body Mass Index 30.67 (86.18 kg, 167.64 cm) vg1 ED Course: 12/08 21:32 Patient arrived in ED. bp1 21:36 Triage completed. vg1 21:36 Arm band placed on. vg1 21:42 EKG completed in triage. Results shown to MD. vg1 23:05 Ronit Brunson MD is Attending Physician. ma2 23:10 Carmen Valle RN is Primary Nurse. ea 23:10 Patient has correct armband on for positive identification. Bed in low position. Call ea light in reach. Side rails up X2. 23:19 Inserted saline lock: 20 gauge in right antecubital area, using aseptic technique. ea Blood collected. 23:53 XRAY Chest (1 view) In Process Unspecified. EDMS 12/09 00:28 Antonio Ayoub MD is Hospitalizing Provider. ma2 00:51 No provider procedures requiring assistance completed. Patient admitted, IV remains in ea place. 01:43 Report given to Josephine ALBERTS. jm8 Administered Medications: 00:49 Drug: Aspirin Chewable Tablet 324 mg Route: PO; jm8 01:29 Follow up: Response: No adverse reaction jm8 Outcome: :27 Discharge ordered by . ma2 00:29 Decision to Hospitalize by Provider. ma2 00:51 Instructed on the need for admit, Demonstrated understanding of instructions. ea 01:50 Admitted to Med/surg accompanied by nurse, via wheelchair, with chart, Report called to ea Receiving nurse 01:50 Condition: stable 01:51 Patient left the ED. ea Signatures: Dispatcher [employer] [facility] Carmen Valle, RN RN Ronit Prakash MD MD ma2 Garcia, Victoria, RN RN Lizeth Spring Joseph, RN RN jm8
[2020-12-09] MEDS ORDERED: ASPIRIN 81 MG CHEWABLE TABLET ONE (01:09)
--- NOTE | 2020-12-09 01:42 | P.HP ---
Certification for Inpatient Patient admitted to: Observation With expected LOS: <2 Midnights Patient will require the following post-hospital care: None Practitioner: I am a practitioner with admitting privileges, knowledge of patient current condition, hospital course, and medical plan of care. Services: Services provided to patient in accordance with Admission requirements found in Title 42 Section 412.3 of the Code of Federal Regulations Patient History Date of Service: 12/09/20 Reason for admission: Chest pain History of Present Illness: 35-year-old female with history of diabetes mellitus presents emergency department for chest pain. Patient reports ongoing chest pain and shortness of breath over the course of the last few weeks. Patient reports seeing her director of program management having abnormal stress test but normal echocardiogram and is scheduled for heart catheterization in the morning. Patient was evaluated in the emergency department, labs unremarkable aside from mild elevated glucose 186 chest x-ray unremarkable, EKG without acute changes. Patient still is reporting some substernal heaviness, nonradiating with some associated shortness of breath, lightheadedness. Patient denies any syncope, diaphoresis. ED provider wishes to admit for further evaluation and management. 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 moist/pink, EOMI, Sclerae nonicteric Neck: Supple, 2+ carotid pulse no bruit, No LAD, Without JVD or thyroid abnormality Respiratory: Clear to auscultation bilaterally, Normal air movement Cardiovascular: Regular rate/rhythm, Normal S1 S2 Gastrointestinal: Normal bowel sounds, No tenderness Musculoskeletal: No tenderness Integumentary: No rashes Neurological: Normal gait, Normal speech, Normal strength at 5/5 x4 extr, Normal tone, Normal affect Lymphatics: No axilla or inguinal lymphadenopathy - Studies Laboratory Data (last 24 hrs) 12/08/20 23:19: PT 13.2 H, INR 1.15 12/08/20 23:19: WBC 6.90 D, Hgb 13.5, Hct 39.8, Plt Count 234 12/08/20 23:19: Sodium 140, Potassium 4.1, BUN 12, Creatinine 0.63, Glucose 186 H, Magnesium 1.8, Total Bilirubin 0.3, AST 22, ALT 37, Alkaline Phosphatase 113 Assessment and Plan - Plan Assessment Chest pain rule out ACS Diabetes mellitus type 2 Plan Chest pain rule out ACS: Monitor on telemetry, continue daily aspirin, statin therapy. Cardiology consulted, NPO pending heart catheterization this morning. P.r.n. pain medications, DVT prophylaxis with SCDs. Will repeat troponin. Diabetes mellitus type 2: A.c. HS Accu-Cheks, will allow patient to control blood sugar with her own insulin pump for now. Patient reports recent A1c was around 6. Discharge Plan: Home Plan to discharge in: 24 Hours - Advance Directives Does patient have a Living Will: No Does patient have a Durable POA for Healthcare: No - Code Status/Comfort Care Code Status Assessed: Yes (Full code) Critical Care: No Time Spent Managing Pts Care (In Minutes): 55
[2020-12-09] MEDS ORDERED: ONDANSETRON 4 MG/2 ML VIAL IV PRN (02:05)
[2020-12-09 02:09] VITALS: BMI 31.5
[2020-12-09 03:39] LABS: Urine Appearance CLEAR (Clear); Urine Bilirubin NEGATIVE (Negative); Urine Blood NEGATIVE (Negative); Urine Color YELLOW (Yellow); Urine Glucose NEGATIVE (Negative); Urine Protein NEGATIVE (Negative); Urine Urobilinogen 0.2 mg/dL (0.2-1.0)
[2020-12-09] MEDS: NA CHLORIDE 0.9% 1,000 ML IV SCH ×2 (03:39→12:56)
[2020-12-09] MEDS: MORPHINE 2 MG/ML SYR IV PRN ×2 (03:39→11:21)
[2020-12-09 03:46] LABS: Urine Microscopic Reflex ORDER UMIC
[2020-12-09 04:52] LABS: Urine Bacteria <20 /HPF (<20); Urine RBC <5 /HPF (NONE SEEN); Urine Urothelial Cells <5 /HPF (NONE SEEN)
--- NOTE | 2020-12-09 08:56 | RAD REPORT ---
EXAM DESCRIPTION: RAD - Chest Single View - 12/08/2020 11:52 pm CLINICAL HISTORY: CHEST PAIN Chest pain. COMPARISON: Chest Pa And Lat (2 Views) dated 12/08/2020 FINDINGS: Portable technique limits examination quality. The lungs are grossly clear. The heart is normal in size. No displaced fractures. IMPRESSION: No acute intrathoracic process suspected.
--- NOTE | 2020-12-09 08:59 | EKG ---
Test Date: 2020-12-08 Test Time: 21:27:44 Toter: CHRISTINE MEASUREMENT RESULTS: Intervals: Rate: 80 NM: 170 QRSD: 88 QT: 382 QTc: 440 [place]: P: 59 NM: 170 QRS: 78 T: 68 INTERPRETIVE STATEMENTS: Normal sinus rhythm Normal ECG Compared to ECG 12/08/2020 09:43:47 Sinus bradycardia no longer present Electronically Signed On 12-09-20 08:58:41 CDT by Antonio Whitfield
[2020-12-09] MEDS ORDERED: ASPIRIN EC 81 MG TAB PO SCH (09:00)
[2020-12-09] MEDS ORDERED: LOSARTAN POTASSIUM 50 MG TABLET PO SCH (09:00)
[2020-12-09] MEDS ORDERED: NITROGLYCERIN/D5W 25 MG/250 ML BTL IV ONE (11:50)
[2020-12-09] MEDS ORDERED: NITROGLYCERIN 100 MCG/ML SYR (for cath lab use only) IV ONE ×2 (11:50→14:32)
[2020-12-09] MEDS ORDERED: HEPA 1000U/500MLS 2,000 UNIT/1,000 ML BAG IV ONE (11:51)
[2020-12-09] MEDS ORDERED: HEPARIN 5000 UNIT/ML 1 ML VIAL ONE (14:29)
[2020-12-09] MEDS ORDERED: FENTANYL CITR 100 MCG/2 ML ONE (14:31)
[2020-12-09] MEDS ORDERED: MIDAZOLAM HCL 2 MG/2 ML INJ ONE (14:31)
[2020-12-09] MEDS ORDERED: ATROPINE SULF 1 MG/10 ML SYR IV ONE (14:32)
[2020-12-09] MEDS ORDERED: VERAPAMIL HCL 10 MG/4 ML VIAL IV ONE (14:32)
[2020-12-09] MEDS ORDERED: HEPARIN 10,000 UNIT/10 ML VIAL IV ONE (14:32)
--- NOTE | 2020-12-09 15:41 | CON ---
Date of Consultation: 12/09/2020 Reason For Consultation: Chest pain. History Of Present Illness: This is a 35-year-old female with type 1 diabetes, on insulin pump, hype rlipidemia, presented with chest pain. She describes as heaviness to the chest with activities and m ild shortness of breath. No radiation. It has became more frequent lately. She had a stress test t hat was abnormal recently with a questionable area of infarction. The patient presented to the [facility] ency room due to chest pain, not getting better. Past Medical History: As outlined above in the HPI. Medications: Refer to reconciliation sheet for detailed list. Allergies: NO KNOWN DRUG ALLERGIES. Family History: No premature coronary artery disease or cancer. Social History: Ex-smoker. Does not drink or use any drugs. Review of Systems: All systems reviewed and they were negative except what mentioned in the HPI. Physical Examination: Vital Signs: Reviewed. Head and Neck: Pupils are equal, reactive to light. Intact eye movements. No JVD. No cervical lym phadenopathy. Neck: Supple. Thyroid is not enlarged. Lungs: Clear to auscultation bilaterally. No rhonchi, rales, or crackles. No accessory muscle use. Heart: Regular rate and rhythm. No extra sounds. Abdomen: Soft, nontender. Bowel sounds positive. No organomegaly. No masses or hernia. No rigidi ty or rebound. Extremities: No edema, clubbing, or cyanosis. Intact pulses. Skin: No rash noted. Neurologic: Alert, awake, oriented x3. No acute focal deficits appreciated. Investigations: Labs are reviewed Assessment And Recommendations: Chest pain concerning for unstable angina with recent abnormal stres s test. Recommend coronary angiogram. We will start aspirin and nitroglycerin for pain control. Fu rther recommendation based on the angiogram results. SR/MODL Voice ID: [id number] Report ID: [id number]
--- NOTE | 2020-12-09 15:50 | OP ---
Date of Procedure: 12/09/2020 Surgeon: JABARI SARABIA Procedure Performed: Selective coronary angiogram. Indication: Unstable angina. Access: Right radial artery 6-Slovak closed with TR band. Complications: None. Bleeding: Less than 10 mL. Description Of Procedure: After risks, benefits, and alternatives were explained, the patient agreed to the procedure and signed informed consent. The patient was brought into the cardiac catheterizat ion laboratory, prepped and draped in usual sterile fashion. Then, we accessed the right radial stephanie ry using pediatric micropuncture kit and placed a 6-Slovak Slender sheath and then we took a 5-Slovak [place] 4.0 catheter into the aortic root, engaged the left main and right carotid, took standard view s. Then, we removed the catheter and the sheath and placed TR band with good hemostasis. Findings: 1.Left main, large and normal. 2.LAD, moderate-sized normal with all branches being normal. 3.Left circumflex, nondominant and normal. 4.RCA, large dominant and normal. Conclusion: Normal coronary arteries. Recommendations: Medical management and evaluate for other causes of chest pain. SR/MODL Voice ID: [id number] Report ID: [id number]
[2020-12-09 17:00] VITALS: O2SAT 97
[2020-12-09 17:13] VITALS: BP 97/64; TEMP 96.7
--- NOTE | 2020-12-09 17:42 | P.PN ---
Date of Service: 12/09/20 patient seen this morning. sharp pain resolved, but continues with tightness no SOB, no cough recent echo normal, d-dimer negative recent abnormal stress test scheduled for cath today likely dc home after cath, pending results.
--- NOTE | 2020-12-09 18:36 | P.DS ---
Admission Date: 12/09/20 Discharge Date: 12/09/20 Disposition: ROUTINE DISCHARGE Discharge Condition: GOOD Reason for Admission: Chest pain Consultations: Cardiology: Dr. Sarabia Procedures: Chest x-ray FINDINGS: Portable technique limits examination quality. The lungs are grossly clear. The heart is normal in size. No displaced fractures. IMPRESSION: No acute intrathoracic process suspected. Cardiac catheterization Surgeon: JABARI SARABIA Procedure Performed: Selective coronary angiogram. Indication: Unstable angina. Access: Right radial artery 6-Scottish closed with TR band. Complications: None. Bleeding: Less than 10 mL. Description Of Procedure: After risks, benefits, and alternatives were explained, the patient agreed to the procedure and signed informed consent. The patient was brought into the cardiac catheterization laboratory, prepped and draped in usual sterile fashion. Then, we accessed the right radial artery using pediatric micropuncture kit and placed a 6-Scottish Slender sheath and then we took a 5-Scottish Cressey 4.0 catheter into the aortic root, engaged the left main and right carotid, took standard views. Then, we removed the catheter and the sheath and placed TR band with good hemostasis. Findings: 1. Left main, large and normal. 2. LAD, moderate-sized normal with all branches being normal. 3. Left circumflex, nondominant and normal. 4. RCA, large dominant and normal. Conclusion: Normal coronary arteries. Recommendations: Medical management and evaluate for other causes of chest pain. Medical problem list Chest pain Diabetes mellitus type 2 Brief History of Present Illness: 35-year-old female with history of diabetes mellitus presents emergency department for chest pain. Patient reports ongoing chest pain and shortness of breath over the course of the last few weeks. 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 Patient was evaluated in the emergency department, labs unremarkable aside from mild elevated glucose 186 chest x-ray unremarkable, EKG without acute changes. P atient still is reporting some substernal heaviness, nonradiating with some associated shortness of breath, lightheadedness. Patient denies any syncope, diaphoresis. ED provider wishes to admit for further evaluation and management. Hospital Course: Patient was admitted for chest pain, had a heart catheterization with normal coronaries. Patient's symptoms have improved moderately. Stable for discharge at this time, will need to follow up with PCP, Cardiology on an outpatient basis for further evaluation and management. Recommend initiation of PPI therapy as an attempt to help with symptomatic control/rule out GERD as a cause for her pain. 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 Strict return precautions given for worsening of symptoms. Vital Signs/Physical Exam: Temp Pulse Resp BP Pulse Ox 96.7 F L 72 16 97/64 97 12/09/20 17:13 12/09/20 17:13 12/09/20 17:13 12/09/20 17:13 12/09/20 17:11 General: Alert, In no apparent distress HEENT: Atraumatic, PERRLA, EOMI Neck: Supple, JVD not distended Respiratory: Clear to auscultation bilaterally, Normal air movement Cardiovascular: Regular rate/rhythm, Normal S1 S2 Gastrointestinal: Normal bowel sounds, No tenderness Musculoskeletal: No tenderness Integumentary: No rashes Neurological: Normal speech, Normal tone, Normal affect Lymphatics: No axilla or inguinal lymphadenopathy Laboratory Data at Discharge: WBC 6.90 K/uL (4.3-10.9) D 12/08/20 23:19 Hgb 13.5 g/dL (12.0-15.0) 12/08/20 23:19 Hct 39.8 % (36.0-45.0) 12/08/20 23:19 Plt Count 234 K/uL (152-406) 12/08/20 23:19 PT 13.2 SECONDS (9.5-12.5) H 12/08/20 23:19 INR 1.15 12/08/20 23:19 Sodium 140 mmol/L (136-145) 12/08/20 23:19 Potassium 4.1 mmol/L (3.5-5.1) 12/08/20 23:19 BUN 12 mg/dL (7-18) 12/08/20 23:19 Creatinine 0.63 mg/dL (0.55-1.3) 12/08/20 23:19 Glucose 186 mg/dL (74-106) H 12/08/20 23:19 Magnesium 1.8 mg/dL (1.8-2.4) 12/08/20 23:19 Total Bilirubin 0.3 mg/dL (0.2-1.0) 05/26/21 23:19 AST 22 U/L (15-37) 12/08/20 23:19 ALT 37 U/L (12-78) 12/08/20 23:19 Alkaline Phosphatase 113 U/L (45-117) 12/08/20 23:19 Troponin I < 0.02 ng/mL (0.0-0.045) 12/09/20 04:03 Home Medications: Citalopram Hydrobromide [Citalopram HBr] 40 mg PO DAILY 12/09/20 Estradiol [Estrace] 1 mg PO DAILY 12/09/20 Losartan Potassium 25 mg PO DAILY 12/09/20 Magnesium Oxide [Magnesium] 400 mg PO DAILY 12/09/20 Metformin HCl [Glucophage Xr] 500 mg PO BID 12/09/20 Rosuvastatin Calcium 40 mg PO DAILY 12/09/20 Ubidecarenone [Co Q-10] 200 mg PO DAILY 12/09/20 Physician Discharge Instructions: You were admitted for chest pain and had a coronary angiogram, this test demons trated that your coronary arteries are normal and her heart rate is not likely because of your chest pain. You will require further evaluation from a primary care doctor to attempt to gain symptomatic control and further evaluate the causes of your chest pain. Followup: Dewayne Argueta, DO [Primary Care Provider] - Time spent managing pt's care (in minutes): 20
[2020-12-09] MEDS ORDERED: ROSUVASTATIN 10 MG TAB PO SCH (21:00)
== END 2020-12-09 19:12 | disposition home or self-care (01) ==
LOC: ER 21:19 → ERHOLD 12-09 01:24 → 2ND 12-09 01:44
PROVIDERS: ADMIT Hospitalist; ATTEND Hospitalist
DX: R07.9 Chest pain, unspecified (principal); E11.9 Type 2 diabetes mellitus without complications; R06.02 Shortness of breath; R42 Dizziness and giddiness; E78.5 Hyperlipidemia, unspecified; E70.319 Ocular albinism, unspecified; Z96.41 Presence of insulin pump (external) (internal); Z87.891 Personal history of nicotine dependence; Z88.6 Allergy status to analgesic agent; Z90.710 Acquired absence of both cervix and uterus; Z20.822 Contact with and (suspected) exposure to COVID-19
CPT/HCPCS: 93005 ×2; 87088; 85025; 87086; 80048; 36415; 83735; 85610; 82947 ×3; 85379; 80076; 84484 ×2; 83880; 71045; 93454; 99285; C1893; J1644 ×2; J2270 ×2; J7030 ×2; 81003; 81015; J2250; J3010